=== PATIENT | male | born 1970 | race Caucasian/White ===

== ENCOUNTER 2018-05-22 00:01 | Emergency (ER) | payer OTHER ==
[~2018-05-22] VITALS: Ht 185.4 cm; Wt 95.3 kg
[~2018-05-22 00:01] MED LIST: AMITRIPTYLINE H50 MG PO; ATORVASTATIN CA20 MG PO; BENZTROPINE MESY1 MG PO; CALCIUM + D3 E1 EACH PO; CETIRIZINE HCL5 MG PO; CYMBALTA60 MG PO; FLUOXETINE HCL20 MG PO; GABAPENTIN400 MG PO; NABUMETONE750 MG PO; NAPROSYN500 MG PO; NORCO 5-325 TA1 EACH PO; OMEPRAZOLE20 MG PO; PEPCID20 MG PO; PERCOCET 10-321 EACH PO; PRILOSEC OTC20 MG PO; RANITIDINE HCL150 M1 PO; SEROQUEL300 MG PO; SYNTHROID88 MCG PO; ULTRAM50 MG PO; VITAMIN D1000 UNI1 PO; ZOFRAN ODT4 MG PO
[2018-05-22] MEDS ORDERED: MOBIC7.5 MG PO (00:25)
[2018-05-22] MEDS ORDERED: VOLTAREN100 GM TOP (00:25)
[2018-05-22] MEDS ORDERED: CIPRO500 MG PO (00:26)
[2018-05-22] MEDS ORDERED: METOPROLOL SUCC50 MG PO (00:27)
[2018-05-22] MEDS ORDERED: K-TAB ER20 MEQ PO (00:31)
[2018-05-22] MEDS ORDERED: CEPHALEXIN500 MG PO (01:39)
== END 2018-05-22 02:30 | disposition home or self-care (01) ==
LOC: ED 00:01
DX: N39.0 Urinary tract infection, site not specified (principal); K21.9 Gastro-esophageal reflux disease without esophagitis; E78.5 Hyperlipidemia, unspecified; Z88.8 Allergy status to other drugs, medicaments and biological substances; Z79.899 Other long term (current) drug therapy
CPT/HCPCS: 51798; 80053; 83605; 85025; 96361; 96365; 96375; 99283-25; J0696; J1885; J7030

== ENCOUNTER 2020-08-01 14:27 | Emergency (ER) | payer OTHER ==
[~2020-08-01] VITALS: Ht 185.4 cm; Wt 98.5 kg
[~2020-08-01 14:27] MED LIST changes: +CEPHALEXIN500 MG PO; +CIPRO500 MG PO; +HYDROXYZINE HCL50 MG PO; +K-TAB ER20 MEQ PO; +METOPROLOL SUCC50 MG PO; +MOBIC7.5 MG PO; +POTASSIUM CITR10 MEQ PO; +VOLTAREN100 GM TOP
== END 2020-08-01 17:57 | disposition home or self-care (01) ==
LOC: ED 14:27
DX: S61.210A Laceration without foreign body of right index finger without damage to nail, initial encounter (principal); W45.8XXA Other foreign body or object entering through skin, initial encounter; K21.9 Gastro-esophageal reflux disease without esophagitis; E78.5 Hyperlipidemia, unspecified; Z88.8 Allergy status to other drugs, medicaments and biological substances; Z79.899 Other long term (current) drug therapy
CPT/HCPCS: 12001; 99282-25

== ENCOUNTER 2020-11-12 16:22 | Emergency (ER) | payer OTHER ==
[~2020-11-12] VITALS: Ht 185.4 cm; Wt 98.5 kg
--- NOTE | 2020-11-13 18:32 | EKG ---
[facility] [address] [place] [address] Signed Normal sinus rhythm Normal ECG When compared with ECG of 19-JUL-2016 08:52, T wave inversion no longer evident in Anterior leads Confirmed by CLARISA BALL MD ([id number]) on 11/13/2020 6:32:09 PM Electronically Signed By: CLARISA BALL MD 11/13/201831 PATIENT NAME: MINAL OJEDA Electrocardiogram DATE OF : 70 PHYSICIAN: CLARISA BALL MD REPORT #: [id number] REPORT IS CONFIDENTIAL AND NOT TO BE RELEASED WITHOUT AUTHORIZATION
== END 2020-11-12 21:09 | disposition home or self-care (01) ==
LOC: ED 16:22
DX: R42 Dizziness and giddiness (principal); K21.9 Gastro-esophageal reflux disease without esophagitis; R78.5 Finding of other psychotropic drug in blood; Z88.8 Allergy status to other drugs, medicaments and biological substances; Z91.048 Other nonmedicinal substance allergy status; Z79.899 Other long term (current) drug therapy
CPT/HCPCS: 70450; 80053; 83735; 84484; 85025; 93005; 93010; 99284-25

== ENCOUNTER 2021-01-16 16:08 | Emergency (ER) | payer OTHER ==
[~2021-01-16] VITALS: Ht 185.4 cm; Wt 96.2 kg
[2021-01-16] MEDS ORDERED: MINIPRESS2 MG PO (17:56)
[2021-01-16] MEDS ORDERED: ALBENDAZOLE (17:57)
[2021-01-16] MEDS ORDERED: ABILIFY5 MG PO (17:57)
[2021-01-16] MEDS ORDERED: KRISTALOSE10 GM PO (19:30)
[2021-01-16] MEDS ORDERED: ADULT GLYCERIN1 EACH PR (19:30)
== END 2021-01-16 19:48 | disposition home or self-care (01) ==
LOC: ED 16:08
DX: K59.00 Constipation, unspecified (principal); K40.90 Unilateral inguinal hernia, without obstruction or gangrene, not specified as recurrent; K21.9 Gastro-esophageal reflux disease without esophagitis; E78.5 Hyperlipidemia, unspecified; K92.2 Gastrointestinal hemorrhage, unspecified; Z88.5 Allergy status to narcotic agent; Z91.048 Other nonmedicinal substance allergy status; Z79.899 Other long term (current) drug therapy
CPT/HCPCS: 74022; 99283-25